=== PATIENT | female | born 1955 | race Caucasian/White ===

== ENCOUNTER 2025-05-22 11:46 | Outpatient (CLI) | payer BC ==
--- NOTE | 2025-05-22 18:20 | RADIOLOGY REPORT ---
EXAM: ESOPHAGRAM HISTORY: DYSPHAGIA, UNSPECIFIED. 65.74 mGy / TIME: 1.[address] OTTO FLUORO TIME: 1.9 minutes. AIR KERMA: 65.74 mGy TECHNIQUE: The patient was positioned both prone and upright at the fluoroscopy unit and instructed to swallow thick and thin barium contrast material under fluoroscopic examination. FINDINGS: Normal swallow reflex. No aspiration. Normal esophageal motility and contractility without evidence of stenosis. There were no abnormal tertiary contractions. No mucosal ulcerations seen throughout the esophagus. There is a small reducible axial hiatal hernia. Contrast proceeded appropriately through the gastric lumen without restriction. No gastroesophageal reflux was noted while the patient was in upright position. Visualized duodenum appears unremarkable with exception of slightly prominent second and third portion duodenum mucosal folds. IMPRESSION: 1. Normal esophogram except for small reducible axial hiatal hernia. 2. No reflux seen. 3. Mild duodenal mucosal fold prominence may represent some component of duodenitis.
== END 2025-05-22 23:59 | disposition home or self-care (01) ==
LOC: RAD 11:46
PROVIDERS: ATTEND Internal Medicine Gastroenterology
DX: K44.9 Diaphragmatic hernia without obstruction or gangrene (principal); R13.10 Dysphagia, unspecified; K21.9 Gastro-esophageal reflux disease without esophagitis
CPT/HCPCS: 74220